=== PATIENT | male | born 1990 | race African-American/Black ===

== ENCOUNTER 2016-10-27 18:43 | Emergency (ER) | END 2016-10-27 23:27 | disposition home or self-care (01) | CPT/HCPCS: 94640; 99283; A9270; J7613; Q0162 ==

== ENCOUNTER 2016-10-30 16:50 | Outpatient (CLI) | END 2016-10-30 16:51 | disposition home or self-care (01) ==

== ENCOUNTER 2017-01-02 10:22 | Outpatient (CLI) | payer OTHER | END 2017-01-02 10:23 | disposition home or self-care (01) | DX: M25.561 Pain in right knee (principal) ==

== ENCOUNTER 2017-09-07 08:00 | Outpatient (CLI) | payer OTHER | END 2017-09-07 08:01 | disposition home or self-care (01) | LOC: LAB.R 08:00 | PROVIDERS: ATTEND Physician Assistant Medical | DX: R30.0 Dysuria (principal) | CPT/HCPCS: 87086; 87491; 87591 ==

== ENCOUNTER 2018-08-31 08:00 | Outpatient (CLI) | payer OTHER ==
[2018-09-01 12:21] LABS: HEPATITIS C ANTIBODY NON-REACTIVE (NON-REACTIVE)
[2018-09-01 13:02] LABS: HEPATITIS B CORE AB TOTAL NON-REACTIVE (NON-REACTIVE)
[2018-09-01 14:21] LABS: HIV AG/AB 4TH GEN NON-REACTIVE (NON-REACTIVE)
== END 2018-08-31 23:59 | disposition home or self-care (01) ==
LOC: LAB.WCP 08:00
PROVIDERS: ATTEND Family Medicine
DX: Z13.9 Encounter for screening, unspecified (principal)
CPT/HCPCS: 36415; 81599; 86592; 86695; 86696; 86704; 86803; 87389; 87491; 87591

== ENCOUNTER 2018-09-20 03:58 | Emergency (ER) | payer OTHER ==
[2018-09-20] MEDS ORDERED: IBUPROFEN 600 MG TABLET PO STA (04:33)
[2018-09-20] MEDS ORDERED: cephALEXin 250 MG CAPSULE PO STA (04:33)
[2018-09-20] MEDS ORDERED: HYDROcod/ACETAM 5/325 MG TABLET PO STA (04:33)
[2018-09-20] MEDS ORDERED: DEXAMETHASONE 10 MG/ML VIAL PO STA (04:33)
--- NOTE | 2018-09-20 04:34 | ED Physician Documentation ---
PD HPI URI - Stated complaint Stated Complaint: SORE THROAT - Chief complaint Chief Complaint: Heent - History obtained from History obtained from: Patient - History of Present Illness Timing - onset: How many days ago (2) Timing duration: Days (2) Timing details: Abrupt onset, Still present Associated symptoms: Fever, Sore throat, Swollen nodes. No: Nasal congestion, Dry cough Contributing factors: Sick contact (friend/family members) Worsened by: Other (swallowing). No: Activity Similar symptoms before: Has not had sx before Recently seen: Not recently seen Review of Systems Constitutional: reports: Fever, Myalgias Nose: denies: Congestion Throat: reports: Sore throat Respiratory: denies: Cough GI: reports: Nausea. denies: Vomiting, Diarrhea Neurologic: reports: Generalized weakness PD PAST MEDICAL HISTORY - Past Medical History Cardiovascular: None Respiratory: None, Pneumonia Endocrine/Autoimmune: None GI: None : None HEENT: None Psych: None Musculoskeletal: None Derm: None - Past Surgical History Past Surgical History: No - Present Medications Home Medications: Ambulatory Orders Medication Instructions Recorded Confirmed Dexamethasone [Decadron] 4 mg PO DAILY #5 tablet 10/27/16 Hydrocodone/Acetaminophen [[place] 1 each PO Q6H PRN #15 tablet 10/27/16 5-325 Tablet] Ondansetron Odt [Zofran] 4 mg TL Q6H PRN #15 tablet 10/27/16 Cephalexin [Keflex] 500 mg PO Q6H #28 capsule 09/20/18 Dexamethasone [Decadron] 4 mg PO DAILY #5 tablet 09/20/18 Hydrocodone/Acetaminophen [[place] 1 each PO Q6H PRN #12 tablet 09/20/18 5-325 Tablet] - Allergies Allergies/Adverse Reactions: Allergies Allergy/AdvReac Type Severity Reaction Status Date / Time aspirin AdvReac Unknown Verified 09/20/18 04:15 - Social History Does the pt smoke?: No Smoking Status: Never smoker Does the pt drink ETOH?: Yes Does the pt have substance abuse?: No - Immunizations Immunizations are current?: Yes - POLST Patient has POLST: No PD ED PE NORMAL - Vitals Vital signs reviewed: Yes - General General: Alert and oriented X 3, Well developed/nourished - HEENT HEENT: No: Pharynx benign (tonsils enlarged and red with exudate. ) - Neck Neck: Supple, no meningeal sign, Other (anterior adenopathy) - Cardiac Cardiac: RRR, No murmur - Respiratory Respiratory: Clear bilaterally - Abdomen Abdomen: Soft, Non tender - Derm Derm: Normal color, Warm and dry - Neuro Neuro: Alert and oriented X 3, No motor deficit, Normal speech Results - Vitals Vitals: Vital Signs - 24 hr 09/20/18 09/20/18 04:11 05:29 Temperature 37.0 C Heart Rate 74 67 Respiratory 16 15 Rate Blood Pressure 139/81 H 122/73 O2 Saturation 99 98 Oxygen O2 Source Room air PD MEDICAL DECISION MAKING - ED course Complexity details: considered differential (exposed to strep and now with symptoms c/w that. ), d/w patient Departure - Departure Disposition: 01 Home, Self Care Clinical Impression: Acute tonsillitis Qualifiers: Pharyngitis/tonsillitis etiology: unspecified etiology Qualified Code(s): J03.90 - Acute tonsillitis, unspecified Condition: Stable Record reviewed to determine appropriate education?: Yes Instructions: ED Strep Pharyngitis Poss Follow-Up: Willis Quiñonez MD [Primary Care Provider] - Prescriptions: Cephalexin [Keflex] 500 mg PO Q6H #28 capsule Dexamethasone [Decadron] 4 mg PO DAILY #5 tablet Hydrocodone/Acetaminophen [[place] 5-325 Tablet] 1 each PO Q6H PRN #12 tablet PRN Reason: Pain Comments: This looks likely to be a bacterial infection. There could also be some infection in the tooth area as well. However the tooth and jaw pain may just relate to the inflammation in the back of the throat putting pressure on the nerve to the mandible. Cephalexin antibiotic 4 times a day for a week as directed. Decadron steroid anti-inflammatory daily for 5 more days. Use Tylenol or ibuprofen if needed for pains. Add hydrocodone if needed for worse pain. Discharge Date/Time: 09/20/18 05:30
[2018-09-20] MEDS ORDERED: CHERRY SYRUP 10 ML UDC PO ONE (04:43)
[2018-09-20 05:30] VITALS: BP 122/73
== END 2018-09-20 05:30 | disposition home or self-care (01) ==
LOC: ED 03:58
DX: J03.90 Acute tonsillitis, unspecified (principal)
CPT/HCPCS: 99283; A9270

== ENCOUNTER 2019-05-06 08:00 | Outpatient (CLI) | payer OTHER ==
[2019-05-06 23:05] LABS: TRICHOMONAS VAGINALIS DNA NEGATIVE (NEGATIVE)
[2019-05-07 13:15] LABS: HEPATITIS A IGM NON-REACTIVE (NON-REACTIVE); HEPATITIS B SURFACE ANTIGEN NON-REACTIVE (NON-REACTIVE); HEPATITIS C ANTIBODY NON-REACTIVE (NON-REACTIVE)
[2019-05-09 15:41] LABS: HIV AG/AB 4TH GEN NON-REACTIVE (NON-REACTIVE)
== END 2019-05-06 23:59 | disposition home or self-care (01) ==
LOC: LAB.WCP 08:00
PROVIDERS: ATTEND Family Medicine
DX: Z11.3 Encounter for screening for infections with a predominantly sexual mode of transmission (principal)
CPT/HCPCS: 36415; 80074; 81599; 86592; 87389; 87491; 87591; 87661